=== PATIENT | male | born 1995 ===

== ENCOUNTER 2017-10-30 10:35 | Inpatient (IN) | payer OTHER ==
[2017-10-30 11:23] LABS: Urine Appearance Clear; Urine Blood Negative (Negative); Urine Color Yellow; Urine Ketones Negative (Negative); Urine Protein Negative (Negative); Urine Specific Gravity 1.021 (1.010-1.030); Urine Urobilinogen Negative (Negative)
[2017-10-30 11:26] LABS: ABS Basophils 0 10^3/ul (0-0.2); ABS Eosinophils 0.2 10^3/ul (0-0.6); ABS Lymphocytes 1.5 10^3/ul (1.0-4.8); ABS Monocytes 0.2 10^3/ul (0-0.8); ABS Neutrophils 3.3 10^3/ul (1.5-7.7); ABS Nucleated RBC 0 10^3/ul; Eosinophil % 4.1 % (0-6); Hematocrit 44 % (42-52); Hemoglobin 15.7 g/dl (14.0-18.0); Lymphocyte % 29.1 % (25-47); Mean Corpuscular HGB Conc 35 g/dl (31-36); Mean Corpuscular Hemoglobin 32 pg (27-31); Mean Corpuscular Volume 91 fL (80-94); Mean Platelet Volume 7.1 um3 (7.4-10.4); Nucleated Red Blood Cells % 0.3; Platelet Count 192 10^3/ul (150-450); Red Cell Distribution Width 13 % (10.5-15); White Blood Count 5.3 10^3/ul (3.5-10.8)
[2017-10-30 11:47] LABS: EGFR Non-African American 120.3 (>60)
[2017-10-30] MEDS ORDERED: Acetaminophen TAB* 325 MG PO PRN (16:41)
[2017-10-30] MEDS ORDERED: Al Hydrox/Mg Hydrox/Simet LIQ* 30 ML UDC PO PRN (16:41)
[2017-10-30] MEDS ORDERED: hydrOXYzine HCL TAB* 50 MG PO PRN (16:43)
--- NOTE | 2017-10-31 07:02 | PN ---
ED Flex Patient Progress Note Date of Service: 10/30/17 Subjective: This is a 21 year-old M who is pending admission to [facility] / transfer to another psychiatric facility / discharge to home / or being observed secondary to depression and SI. Pt. examined at 0655. He is pleasant this morning. He offers on complaints. Waiting for psychiatry evaluation. Objective: Vitals: Most recent vital signs documented below. General NAD, Alert and oriented x3. Laboratory: Current laboratory results documented below. Assessment: Pending psychiatric evaluation Plan: Pending psychiatric or medical consultation to observe / transfer / admit / discharge will follow up daily . Vital Signs Temp Pulse Resp BP Pulse Ox 98.4 F 64 18 123/78 100 10/30/17 22:41 10/30/17 22:41 10/30/17 22:41 10/30/17 22:41 10/30/17 22:41 Lab Results - Entire Visit 10/30/17 10/30/17 10/30/17 11:16 11:16 11:01 WBC 5.3 RBC 4.90 Hgb 15.7 Hct 44 MCV 91 MCH 32 H MCHC 35 RDW 13 Plt Count 192 MPV 7.1 L Neut % (Auto) 61.6 Lymph % (Auto) 29.1 [place] % (Auto) 4.6 Eos % (Auto) 4.1 Baso % (Auto) 0.6 Absolute Neuts (auto) 3.3 Absolute Lymphs (auto) 1.5 Absolute Monos (auto) 0.2 Absolute Eos (auto) 0.2 Absolute Basos (auto) 0 Absolute Nucleated RBC 0 Nucleated RBC % 0.3 Sodium 140 Potassium 3.6 Chloride 106 Carbon Dioxide 26 Anion Gap 8 BUN 10 Creatinine 0.81 Est GFR ( Amer) 154.7 Est GFR (Non-Af Amer) 120.3 BUN/Creatinine Ratio 12.3 Glucose 109 H Calcium 9.4 Total Bilirubin 0.90 AST 19 ALT 21 Alkaline Phosphatase 65 Total Protein 7.2 Albumin 4.7 Globulin 2.5 Albumin/Globulin Ratio 1.9 TSH 1.86 Urine Color Yellow Urine Appearance Clear Urine pH 5.0 Ur Specific [place] 1.021 Urine Protein Negative Urine Ketones Negative Urine Blood Negative Urine Nitrate Negative Urine Bilirubin Negative Urine Urobilinogen Negative Ur Leukocyte Esterase Negative Urine Glucose Negative Salicylates < 2.50 Urine Opiates Screen Acetaminophen < 15 Ur Barbiturates Screen Ur Phencyclidine Scrn Ur Amphetamines Screen U Benzodiazepines Scrn Urine Cocaine Screen U Cannabinoids Screen Serum Alcohol < 10 10/30/17 11:01 WBC RBC Hgb Hct MCV MCH MCHC RDW Plt Count MPV Neut % (Auto) Lymph % (Auto) [place] % (Auto) Eos % (Auto) Baso % (Auto) Absolute Neuts (auto) Absolute Lymphs (auto) Absolute Monos (auto) Absolute Eos (auto) Absolute Basos (auto) Absolute Nucleated RBC Nucleated RBC % Sodium Potassium Chloride Carbon Dioxide Anion Gap BUN Creatinine Est GFR ( Amer) Est GFR (Non-Af Amer) BUN/Creatinine Ratio Glucose Calcium Total Bilirubin AST ALT Alkaline Phosphatase Total Protein Albumin Globulin Albumin/Globulin Ratio TSH Urine Color Urine Appearance Urine pH Ur Specific [place] Urine Protein Urine Ketones Urine Blood Urine Nitrate Urine Bilirubin Urine Urobilinogen Ur Leukocyte Esterase Urine Glucose Salicylates Urine Opiates Screen None detected Acetaminophen Ur Barbiturates Screen None detected Ur Phencyclidine Scrn None detected Ur Amphetamines Screen None detected U Benzodiazepines Scrn None detected Urine Cocaine Screen None detected U Cannabinoids Screen Presumptive positive A Serum Alcohol
--- NOTE | 2017-10-31 08:12 | ED ---
Progress - Consult/PCP Time Called: 13:15 Course/Dx - Course Course Of Treatment: ADMIT MHU - Diagnoses Provider Diagnoses: Suicidal ideation, Mental health problem Discharge - Sign-Out/Discharge Documenting (check all that apply): Discharge - ADMIT MHU - Discharge Plan Condition: Fair [place] [place] [facility] [place] [facility] - - Billing Disposition and Condition Condition: FAIR Disposition: PSY-[facility]
--- NOTE | 2017-10-31 08:59 | PN ---
ED Flex Patient Progress Note Date of Service: 10/31/17 Subjective: Patient depressed with SI. Failing classes at [employer]. Was granted disposition of admission to [facility] [place] [facility] but my understanding is that his insurance is out of network. Objective: Depressed young male with SI Assessment: Unspecified Depressive DO Plan: Will transfer to facility "In-Network." Vital Signs Temp Pulse Resp BP Pulse Ox 98.0 F 78 18 127/80 99 10/31/17 08:06 10/31/17 08:06 10/31/17 08:06 10/31/17 08:06 10/31/17 08:06 Lab Results - Entire Visit 10/30/17 10/30/17 10/30/17 11:16 11:16 11:01 WBC 5.3 RBC 4.90 Hgb 15.7 Hct 44 MCV 91 MCH 32 H MCHC 35 RDW 13 Plt Count 192 MPV 7.1 L Neut % (Auto) 61.6 Lymph % (Auto) 29.1 [place] % (Auto) 4.6 Eos % (Auto) 4.1 Baso % (Auto) 0.6 Absolute Neuts (auto) 3.3 Absolute Lymphs (auto) 1.5 Absolute Monos (auto) 0.2 Absolute Eos (auto) 0.2 Absolute Basos (auto) 0 Absolute Nucleated RBC 0 Nucleated RBC % 0.3 Sodium 140 Potassium 3.6 Chloride 106 Carbon Dioxide 26 Anion Gap 8 BUN 10 Creatinine 0.81 Est GFR ( Amer) 154.7 Est GFR (Non-Af Amer) 120.3 BUN/Creatinine Ratio 12.3 Glucose 109 H Calcium 9.4 Total Bilirubin 0.90 AST 19 ALT 21 Alkaline Phosphatase 65 Total Protein 7.2 Albumin 4.7 Globulin 2.5 Albumin/Globulin Ratio 1.9 TSH 1.86 Urine Color Yellow Urine Appearance Clear Urine pH 5.0 Ur Specific [place] 1.021 Urine Protein Negative Urine Ketones Negative Urine Blood Negative Urine Nitrate Negative Urine Bilirubin Negative Urine Urobilinogen Negative Ur Leukocyte Esterase Negative Urine Glucose Negative Salicylates < 2.50 Urine Opiates Screen Acetaminophen < 15 Ur Barbiturates Screen Ur Phencyclidine Scrn Ur Amphetamines Screen U Benzodiazepines Scrn Urine Cocaine Screen U Cannabinoids Screen Serum Alcohol < 10 10/30/17 11:01 WBC RBC Hgb Hct MCV MCH MCHC RDW Plt Count MPV Neut % (Auto) Lymph % (Auto) [place] % (Auto) Eos % (Auto) Baso % (Auto) Absolute Neuts (auto) Absolute Lymphs (auto) Absolute Monos (auto) Absolute Eos (auto) Absolute Basos (auto) Absolute Nucleated RBC Nucleated RBC % Sodium Potassium Chloride Carbon Dioxide Anion Gap BUN Creatinine Est GFR ( Amer) Est GFR (Non-Af Amer) BUN/Creatinine Ratio Glucose Calcium Total Bilirubin AST ALT Alkaline Phosphatase Total Protein Albumin Globulin Albumin/Globulin Ratio TSH Urine Color Urine Appearance Urine pH Ur Specific [place] Urine Protein Urine Ketones Urine Blood Urine Nitrate Urine Bilirubin Urine Urobilinogen Ur Leukocyte Esterase Urine Glucose Salicylates Urine Opiates Screen None detected Acetaminophen Ur Barbiturates Screen None detected Ur Phencyclidine Scrn None detected Ur Amphetamines Screen None detected U Benzodiazepines Scrn None detected Urine Cocaine Screen None detected U Cannabinoids Screen Presumptive positive A Serum Alcohol
--- NOTE | 2017-11-01 13:10 | PN ---
MHU: Group Therapy Note - Service Type Service Type: [id number] Group Psychotherapy - Cognitive Behavioral Group Therapy ( CBT):Patient was attentive and participatory in CBT programming this morning, and remained in good behavioral control. Patient expressed positive insights regarding relevant treatment interventions and goals.
--- NOTE | 2017-11-01 16:38 | HP ---
HISTORY AND PHYSICAL: DATE OF ADMISSION: 10/30/17 PROVIDER: Dana Becerra NP, in Psychiatry. SUPERVISING PHYSICIAN: Migue Flowers MD * (DICTATED BY DANA BECERRA NP ) JUSTIFICATION FOR ADMISSION: The patient is need of 24-hour supervision and care secondary to suicidal ideation. CHIEF COMPLAINT: "I can go go go until I make one mistake and then everything falls apart." HISTORY OF PRESENT ILLNESS: The patient is a 21-year-old male with a history of depression and anxiety, who arrives to the hospital and is admitted on voluntary status. There seems to be as seasonal component to Roman's depression. He sees things happening every year in October and/or the spring time since 7th or 8th grade and he also has a bump of depression in the fall. He is in music education and performance, double major. He feels like he has a great social network to keep him supported. He is a senior at [employer]. He feels like he is under high pressure due to the fact that he is also doing violin performance. He self-harms occasionally using a knife and cuts himself on his arm apparently. It had been a few months since he had self- harmed and before that it had been a year. He describes feeling driven most of the time. He has a lot of energy, he sleeps maybe 4 to 5 hours a day. He has a lot of projects going all at a time. He is extremely talkative and he says that he "over shares" with his friends telling them everything about himself. Since this exacerbation of depressive symptoms, he has had poor sleep, increased appetite, and weight gain. He remarks that last year, he lost about 50 pounds by cutting carbs out of his diet. His sleep is poor. He is feeling some guilt about not performing in something he has practiced for all year. His energy is lower than usual. He cannot concentrate. Appetite has increased and he is having suicidal thoughts. On the manic side, he is distractible. He is grandiose, he has 2 majors which he expects himself to excel in, one of which is incredibly difficult, and he is very talkative. Roman describes himself as having paralyzing depressions and "oscillating thoughts" at times which I would interpret to mean racing thoughts. PAST PSYCHIATRIC HISTORY: He has had no previous psychiatric admissions. He is in counseling at school. He is not taking any psychiatric medications at this time. His maternal grandfather 2 Fridays ago and that has been a significant stress on him, may in fact be a precipitating cause of this depressive episode. He denies having traumatic brain injuries, previous psych meds at all. PAST MEDICAL HISTORY: He says he takes a nasal spray for allergies if he has allergies and if he does not take the spray, he becomes off balance and his inner ears hurt. FAMILY HISTORY: His great uncle suicided by hanging. He thinks that there were 2-3 others on his father's side who were suicides, but he is not sure about that. He says that his family psychiatric history is generally unknown, but that it is suspected that there are undiagnosed or not talked about problems. SOCIAL HISTORY: Born in [place], currently lives in [place], [place]. Denies having an abusive past. He is well educated, in college at [email or web address]. He is not employed, is not in the . Does not have any legal problems and does not discuss any sexually transmitted infections. REVIEW OF SYSTEMS: The patient reports feeling alert. He denies shortness of breath, heat or cold intolerance, chest pain, or abdominal pain. He denies neurological symptoms. He denies fevers or changes in weight that are recent or sudden. As already mentioned, he has lost 50 pounds last year. PHYSICAL EXAMINATION VITAL SIGNS: On 10/30/17, at 10:36 in the morning, temperature is 98.9, pulse rate is 87, respiratory rate is 16, O2 sat on room air is 100%, blood pressure is 141/60, that blood pressure does come down presumably when he is more relaxed. For further exam data, please see the emergency department records. MENTAL STATUS EXAM: Roman is a 21-year-old male, appearing his stated age. He appears healthy. He has a longish, curly black hair, and he wears glasses. He is averagely built. His grooming is excellent. He appears to have normal motor movements. He is calm and cooperative. His speech is a normal rate, tone , and volume. He is euthymic. His affect is full. His thought processes are likely racing a little, but they are logical and he is understanding what I am asking him to understand. Thought content is clear. He is not currently in this moment homicidal or suicidal. He is not having auditory or visual hallucinations. His insight is good, his judgment is good. His impulse control , however, is fair at best. He is alert and oriented x3. He is intelligent as evidenced by his performance in school under great pressure. LABORATORY DATA: His MCH is slightly high at 32, his MPV is a little low at 7.1. Glucose is elevated at 109, and as far as toxicology goes that cannabinoid screen is a presumptive positive. He did have HIV testing done and it was found to be nonreactive. DANA BECERRA, BOTTOM LIQUOR ATTENDANT [id number]/[facility] #: [id number] YEE
[2017-11-01] MEDS ORDERED: Lithium Carbonate TAB* 300 MG PO SCH (21:00)
--- NOTE | 2017-11-03 14:16 | PN ---
Subjective - Subjective Date of Service: 11/03/17 Service Type: 28252 Hosp care 15 min low complexity Subjective: Roman is seen in weekend coverage for [employer] Dana Becerra. He is visibly engaged with peers in the day area, playing cards and interacting socially. He has no complaints today and denies active distress, emotional pain or SI. He reports no adverse effects thus far from lithium. Objective - Appearance Appearance: Well Developed/Nourished Dysmorphic Features: Yes Hygiene: Normal Grooming: Well Kept - Behavior Psychomotor Activities: Normal Exhibits Abnormal Movement: No - Attitude and Relatedness Attitude and Relatedness: Cooperative Eye Contact: Good - Speech Quality: Unpressured Latencies: Normal Quantity: Appropriate - Mood Patient's Decription of Mood: "Good" - Affect Observed Affect: Good Affect Consistent with: Euthymia - Thought Process Patient's Thought Process: Coherent Thought Content: No Passive Wish, No Suicidal Planning, No Homicidal Ideation, No Paranoid Ideation - Sensorium Experiencing Hallucinations: No, Sensorium is Clear Type of Hallucinations: Visual: No, Auditory: No, Command: No - Level of Consciousness Level of Consciousness: Alert Orientation: Yes Intact, Yes Orientated to Time, Yes Orientated to Place, Yes Orientated to Person - Impulse Control Impulse Control: Tenuous - Insight and Judgement Insight and Judgement: Fair - Group Participation Particating in Group Activities: Yes - Medication Management Medication Management Adherence: Yes Assessment - Assessment Merits Inpatient Hospitalization: Consolidate Improvements, Pending Safe DC Plan Inpatient DSM-V Dx: F31.81 Clinical Impression: 21 y.o. 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 Plan - Plan Treatment Plan: Name: ROMAN FONSECA Birthdate: 1995 [id number] The patient is receiving lithium carbonate 900mg PO qhs. Pending therapeutic blood level. Continue to treat on inpatient basis. Continued Medication Management: Start Medication Medications: Current Medications Acetaminophen (Tylenol Tab*) 650 mg PO Q4H PRN PRN Reason: for pain; or Temp >101 F Al Hydrox/Mg Hydrox/Simethicone (Maalox Plus*) 30 ml PO Q4H PRN PRN Reason: INDIGESTION Hydroxyzine HCl (Atarax Tab*) 50 mg PO Q6H PRN PRN Reason: ANXIETY [place] Carbonate ([place] Carbonate Tab*) 900 mg PO BEDTIME CASSANDRA - Discharge Plan Discharge Plan: Inpatient Hospitalization
[2017-11-03] MEDS: Lithium Carbonate TAB* 300 MG PO SCH (20:26)
[2017-11-04] MEDS: Lithium Carbonate TAB* 300 MG PO SCH (20:33)
[2017-11-05 08:12] VITALS: BP 133/80
--- NOTE | 2017-11-05 08:22 | PN ---
Subjective - Subjective Date of Service: 11/02/17 Service Type: 39441 Hosp care 15 min low complexity Subjective: Roman is doing very well. We discuss his discharge and in the context of the milieu he does very well. He asserts that he feels better when he is with people. Instead, he is lonely and vulnerable to suicidal thoughts when alone. He is agreeable to staying the weekend. Objective - Appearance Appearance: Healthy Appearing Dysmorphic Features: No Hygiene: Normal Grooming: Well Kept - Behavior Psychomotor Activities: Normal Exhibits Abnormal Movement: No - Attitude and Relatedness Attitude and Relatedness: Cooperative Eye Contact: Good - Speech Quality: Unpressured Latencies: Normal Quantity: Appropriate - Mood Patient's Decription of Mood: "Great" - Affect Observed Affect: Good Affect Consistent with: Euthymia - Thought Process Patient's Thought Process: Coherent Thought Content: No Passive Wish, No Suicidal Planning, No Homicidal Ideation, No Paranoid Ideation - Sensorium Experiencing Hallucinations: No, Sensorium is Clear Type of Hallucinations: Visual: No, Auditory: No, Command: No - Level of Consciousness Level of Consciousness: Alert Orientation: Yes Intact, Yes Orientated to Time, Yes Orientated to Place, Yes Orientated to Person - Impulse Control Impulse Control: Impaired - Insight and Judgement Insight and Judgement: Fair - Group Participation Particating in Group Activities: Yes - Medication Management Medication Management Adherence: Yes - Additional Observations Comments: Roman appears well and happy. On the other hand, he is distressed by his previous overwhelming thoughts. His mood is somewhat labile, going from confident and pleasant to less certain of himself and worried. 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 He clearly becomes manic and does not know how to manage his depressed moods. Plan - Plan Treatment Plan: Name: ROMAN FONSECA Birthdate: 1995 [id number] Continued Medication Management: Start Medication Medications: Current Medications Acetaminophen (Tylenol Tab*) 650 mg PO Q4H PRN PRN Reason: for pain; or Temp >101 F Al Hydrox/Mg Hydrox/Simethicone (Maalox Plus*) 30 ml PO Q4H PRN PRN Reason: INDIGESTION Hydroxyzine HCl (Atarax Tab*) 50 mg PO Q6H PRN PRN Reason: ANXIETY [place] Carbonate ([place] Carbonate Tab*) 900 mg PO BEDTIME CASSANDRA Last Admin: 11/04/17 20:33 Dose: 900 mg - Discharge Plan Discharge Plan: Outpatient Follow Up Outpatient Program: [facility] Additional Comments: Roman will be started on lithium ER 450 mg and titrated up to 900 mg. Side effects have been discussed. The need for blood draws has also been discussed. He will benefit from additional days on the unit to stabilize.
--- NOTE | 2017-11-05 11:26 | PN ---
MHU: Group Therapy Note - Service Type Service Type: 16260 Group Psychotherapy - Cognitive Behavioral Group Therapy ( CBT):Patient was attentive and participatory in CBT programming this morning, and remained in good behavioral control. Patient expressed positive insights regarding relevant treatment interventions and goals.
--- NOTE | 2017-11-05 22:10 | DS ---
DISCHARGE SUMMARY: DATE OF ADMISSION: 10/30/17 DATE OF DISCHARGE: 11/05/17 SUPERVISING PHYSICIAN: Migue Flowers MD* (dictated by Dana Becerra NP). DIAGNOSES: [place] I: Bipolar 1 disorder, mixed type. [place] II: Deferred. [place] III: None. CONDITION AT THE TIME OF DISCHARGE: Improved. Psychiatrically cleared, stable. Roman participated in groups and was very social with peers. His family is agreeable to discharge. He has done well here psychiatrically. He tolerated lithium well. He will be attending [facility] at [facility]. MENTAL STATUS EXAM: At the time of discharge, Roman is calm, cooperative and has good eye contact. He is alert and oriented x3. His grooming is excellent. His speech is normal rate and rhythm. His thought processes are logical. He is not psychotic, not delusional. He denies AH, VH, SI, HI. Insight and judgement are fair to good. He is willing to follow up and he is urged to continue seeing his therapist. DISCHARGE INSTRUCTIONS TO THE PATIENT: A: Medications: [place] ER 450 mg, take 2 at bedtime. B: Diet is regular. C: Activities as tolerated. Roman is a nonsmoker and there are no studies pending at the time of discharge. D: Followup Care: He will be seeing Carla At [facility] on Sunday and his therapist on Sunday. E: Substance abuse followup is not indicated. HOSPITAL COURSE: Part A: The patient is a 21-year-old male with a history of depression and anxiety who arrives to the hospital and is admitted on voluntary status. There seems to be a seasonal component to Roman's depression. He sees things happening every year in October and/or the spring time since 7th or 8th grade and he also has a bump of depression in the fall. He is in music education and performance, a double major. He feels like he has a great social network to keep him supported. He is a senior at [employer]. He feels like he is under high pressure due to the fact that he is doing violin performance. He self harms occasionally using a knife and cuts himself on his arm apparently. It has been a few months since he has self harmed, and before that it has been a year. He describes himself feeling driven most of the time. He has a lot of energy. He sleeps maybe 4 to 5 hours a day. He has a lot of projects going, all at one time. He is extremely talkative and he says that he over shares with his friends, telling them everything about himself. Since this exacerbation of depressive symptoms, he has had poor sleep, increased appetite and weight gain. He remains at last year, he lost about 50 pounds by cutting carbs out of his diet. His sleep is poor. He is feeling some guilt about not performing in something he has practised for all year. His energy is lower than usual. He cannot concentrate. Appetite has increased and he is having suicidal thoughts. On the manic side, he is distractible. He is grandiose. He has 2 majors which he expects himself to excel in, one of which is incredibly difficult and he is incredibly talkative. Roman describes himself as having paralyzing depression and "oscillating thoughts" at times which I would interpret to mean racing thoughts. Part B: Psychiatric treatment was rendered. The patient was admitted to the adult behavioral unit and placed on 15-minute checks. Roman did very well on the unit, went to all groups, interacted well with his peers. We added lithium at 450 mg and then increased it to 900 mg and he tolerated that well. He did well on one to ones. He was insightful, charming, easy to talk to and his peers enjoyed his company. There were no consults entered, but he is much improved and apparently feeling quite well. We are discharging him as he is comfortable with himself and his friends being able to support him. DANA BECERAR, LIZBETH [id number]/[facility] #: [id number] YEE
== END 2017-11-05 13:30 | disposition home or self-care (01) | DRG 753 ==
LOC: ED 10:35 → BSU 10-31 11:02
PROVIDERS: ADMIT Psychiatry & Neurology Psychiatry; ATTEND Psychiatry & Neurology Psychiatry
PROC: GZHZZZZ Group Psychotherapy (ICD-10-PCS; principal; 2017-10-31)
DX: F31.60 Bipolar disorder, current episode mixed, unspecified (principal); R45.851 Suicidal ideations; F41.9 Anxiety disorder, unspecified; F31.81 Bipolar II disorder; Z81.8 Family history of other mental and behavioral disorders; Z91.5 Personal history of self-harm
CPT/HCPCS: 36415; 80053; 80061; 80307; 80320; 80329; 81003; 83036; 84443; 85025; 86703; 90853; 99222; 99231; 99238; 99284; A9270-GY; G0480